=== PATIENT | male | born 1955 | race Caucasian/White ===

== ENCOUNTER 2017-07-28 18:57 | Emergency (ER) | payer MEDICARE ==
[2017-07-28 19:54] LABS: Hemoglobin 13.7 g/dL (14.0-18.0); Mean Corpuscular HGB CONC 34.8 g/dL (32.0-36.0); Mean Corpuscular Hemoglobin 33.7 pg (27.0-31.0); Mean Corpuscular Volume 96.9 fl (80.0-94.0); Mean Platelet Volume 8.3 fL (7.4-10.4); Platelet Count 45 thou/uL (130-400); RBC Distribution Width 14.4 % (11.5-14.5); Red Blood Cell (RBC) Count 4.07 mill/uL (4.70-6.10); White Blood Cell (WBC) Count 10.4 thou/uL (4.8-10.8)
[2017-07-28 20:06] LABS: ALT (SGPT) 17 U/L (8-55); AST (SGOT) 52 U/L (5-34); Albumin 2.8 g/dL (3.4-4.8); Alkaline Phosphatase 207 U/L (40-150); Anion Gap 12 mmol/L (10-20); BUN (Urea Nitrogen) 12 mg/dL (8.4-25.7); Bilirubin, Total 2.4 mg/dL (0.2-1.2); Calc. Creatinine Clearance 0 mL/min (70-130); Carbon Dioxide 24 mmol/L (23-31); Chloride 98 mmol/L (98-107); Estimated GFR-MDRD 79; Globulin 3.9 g/dL (2.4-3.5); Glucose 128 mg/dL (80-115); Lipase 64 U/L (8-78); Protein, Total 6.7 g/dL (5.8-8.1); Sodium 131 mmol/L (136-145)
[2017-07-28 20:08] LABS: Potassium 2.9 mmol/L (3.5-5.1)
--- NOTE | 2017-07-28 20:08 | RAD ---
CHEST ONE VIEW 07/28/17 HISTORY: Abdominal distention. Comparison radiograph 12/03/15. FINDINGS: Mild elevation of the left hemidiaphragm. No focal air space consolidation, pneumothorax or effusion. Mild pulmonary venous congestion. No pneumothorax. IMPRESSION: No acute intrathoracic abnormality. POS: [facility]
[2017-07-28 20:18] LABS: CKMB 1.4 ng/mL (0-6.6); Troponin I Less than 0.010 ng/mL (< 0.028)
[2017-07-28] MEDS ORDERED: Potassium Chloride 20 MEQ TAB ONE (20:27)
[2017-07-28 20:29] LABS: Band 3 % (5-11); Differential Comment Immature Cell(s); Eosinophils 3 % (0-10); Lymphocytes 19 % (21-51); MDiff Complete? YES; Monocytes 4 % (0-10); Neutrophil 38 % (42-75); Nucleated RBC 2 % (0); PLT Morphology Comment Appears Decreased; RBC Morphology Normal; Reactive Lymphocytes 6 % (0-10); Reflex for Review?? YES
[2017-07-28] MEDS ORDERED: Lidocaine 1% w/Epinephrine 1:100K 20 ML VIAL ONE (20:43)
[2017-07-28 22:00] LABS: BF Color Yellow; Body Fluid Source Ascites Body Fluid; Clarity Cloudy/Turbid (Clear); Tube # 1; WBC/NonHematic-Auto 613 /cumm
[2017-07-28 22:03] LABS: BF RBC Count - Manual 4325 /cumm
[2017-07-28 22:13] LABS: BF Segmented Neutrophils 11 %; Cell Count Non Hematic 22 %; Lymphocytes 67 %
== END 2017-07-29 00:05 | disposition home or self-care (01) ==
LOC: ERS 18:57
DX: R18.8 Other ascites (principal); I25.10 Atherosclerotic heart disease of native coronary artery without angina pectoris; I10 Essential (primary) hypertension; K74.60 Unspecified cirrhosis of liver; I25.2 Old myocardial infarction; F17.210 Nicotine dependence, cigarettes, uncomplicated; Z79.899 Other long term (current) drug therapy
CPT/HCPCS: 36415; 49082; 71045; 80053; 82553; 82945; 83690; 83880; 84157; 84484; 85025; 85060; 87070; 87205; 89051; 93005; J2001

== ENCOUNTER 2017-07-30 02:13 | Inpatient (IN) | payer MEDICARE ==
[2017-07-30 03:11] LABS: Hemoglobin 13.3 g/dL (14.0-18.0); Mean Corpuscular HGB CONC 35.5 g/dL (32.0-36.0); Mean Corpuscular Hemoglobin 34.8 pg (27.0-31.0); Mean Corpuscular Volume 97.9 fl (80.0-94.0); Mean Platelet Volume 7.9 fL (7.4-10.4); Platelet Count 42 thou/uL (130-400); RBC Distribution Width 14.6 % (11.5-14.5); Red Blood Cell (RBC) Count 3.83 mill/uL (4.70-6.10)
[2017-07-30 03:17] LABS: INR-International Normal Ratio 1.7; PTT 33.6 SEC (22.9-36.1); Prothrombin Time 20.3 SEC (12.0-14.7)
[2017-07-30 03:20] LABS: ALT (SGPT) 16 U/L (8-55); AST (SGOT) 53 U/L (5-34); Albumin 2.5 g/dL (3.4-4.8); Alkaline Phosphatase 180 U/L (40-150); Anion Gap 12 mmol/L (10-20); BUN (Urea Nitrogen) 13 mg/dL (8.4-25.7); Bilirubin, Total 2.8 mg/dL (0.2-1.2); Calc. Creatinine Clearance 0 mL/min (70-130); Calcium 8.8 mg/dL (7.8-10.44); Carbon Dioxide 24 mmol/L (23-31); Chloride 100 mmol/L (98-107); Estimated GFR-MDRD 65; Globulin 3.6 g/dL (2.4-3.5); Glucose 141 mg/dL (80-115); Potassium 3.5 mmol/L (3.5-5.1); Protein, Total 6.1 g/dL (5.8-8.1); Sodium 132 mmol/L (136-145)
[2017-07-30 03:28] LABS: Anisocytosis SLIGHT = 6-15 cells (100X) (0-5/hpf); Band 1 % (5-11); Eosinophils 5 % (0-10); Lymphocytes 31 % (21-51); MDiff Complete? YES; Monocytes 20 % (0-10); Neutrophil 42 % (42-75); PLT Morphology Comment Appears Decreased
--- NOTE | 2017-07-30 06:32 | HP ---
PRIMARY CARE PHYSICIAN: Dr. De Luna PRIMARY GASTROINTESTINAL DOCTOR: Dr. Solis TIME OF SERVICE: 0540 on 07/30/2017. CHIEF COMPLAINT: Abdominal pain, shortness of breath. HISTORY OF PRESENT ILLNESS: Mr. Argueta is a 62-year-old gentleman here in the emergency department 48 hours ago for abdominal pain and ascites and underwent a 2-3 liter paracentesis. The study of th at fluid showed 613 total white blood cells, but only 11% segs. Culture is negative today. He did well after drainage, but has had rapid reoccurrence. He was in contact with Dr. Irma seay and was told to come to the ER. The patient had trouble getting a ride and was unable to get here for 10 hours afterwards. He finally did arrive here early this morning. Labs showed a white co unt has bumped up slightly to 12.0. Creatinine bumped up slightly to 1.14. Potassium was normal. T he remainder of his labs looked pretty good. We were called for admission. The patient denies any f emily or chills. He is nauseated and has early satiety. No cough or sputum production. No GI bleed ing. PAST MEDICAL HISTORY: 1. Hepatitis C, supposedly treated. 2. Cirrhosis. 3. Coronary artery disease. 4. Hypertension. 5. History of medical noncompliance. PAST SURGICAL HISTORY: 1. Coronary artery bypass graft x2 vessels. 2. Cholecystectomy remotely. HOME MEDICATIONS: Lasix 40 mg p.o. q.a.m. and 20 mg p.o. q.p.m. ALLERGIES: CODEINE. FAMILY HISTORY: Negative for clotting or bleeding disorder, immune dysfunction. SOCIAL HISTORY: Significant for half pack per day times about 30 years. No alcohol or IV drug use r eported. REVIEW OF SYSTEMS: All systems reviewed and negative except as stated as per HPI. PHYSICAL EXAMINATION: VITAL SIGNS: Temperature current 98.4, pulse 102, blood pressure 141/68, respiratory rate 24, sattin g 94% on room air. GENERAL: He is awake. He is alert. He is oriented x3. He is a well-developed white male, appeared to be in no acute distress, but looks uncomfortable. HEENT: Normocephalic and atraumatic. Pupils equal, round, react to light bilaterally, mucus membran es are moist. No visible lesions or thrush. NECK: Supple. No lymphadenopathy, JVD or thyromegaly. LUNGS: Clear. No wheezes, no rales, no rhonchi. He had some dullness at the bases. ABDOMEN: Distended and tense. He does have a shifting dullness. He has got no tenderness to palpat ion except at the costal margins bilaterally. There are no peritoneal signs. No rebound, rigidity o r guarding. EXTREMITIES: No cyanosis or clubbing. Trace pedal edema. SKIN: Warm, moist, and well perfused without any rashes or lesions. MUSCULOSKELETAL: Normal to inspection. Large joints appear normal. There is no inflammation or pal pable effusion. He has good range of motion. NEUROLOGIC: Cranial nerves II-XII grossly intact. Normal speech pattern. 5/5 strength and no focal deficits. LABORATORY DATA: Sodium 132, potassium 3.5, chloride 100, bicarbonate 24, BUN 13, creatinine 1.14 up from 0.96 earlier 2 days ago, and glucose 141. Liver functions are fairly normal. Alkaline phosphatase slightly elevated at 180 and AST slightly el evated at 53. His total bilirubin is up from 2.4 up to 2.8 today. INR is 1.7. Lactic acid is abnor mal at 3.6 and white blood cell count is 12.0 with 42% granulocytes, 1% bands, and 31% lymphocytes. He has a 20% monocytes. Hemoglobin 13.3, hematocrit of 37.4, and platelet count was 42,000. Chest x -ray shows no acute cardiopulmonary disease. ASSESSMENT AND PLAN: 1. Abdominal pain. 2. Recurrent ascites. 3. Cirrhosis. 4. Coronary artery disease. 5. Hypertension. 6. History of medical nonadherence. We will place patient in observation. I spoke with Dr. Solis. I will give the patient albumin 25 g maureen q.8. and ask Radiology to retap him again for cell counts and cultures. In the meantime, we corbin l keep him on his Lasix 40 mg p.o. q.a.m. and 20 mg p.o. q.p.m. He is not on any Aldactone due to gy necomastia in the past per Dr. Solis, however, I will put him on a little bit of propranolol 10 mg b .i.d. and we can titrate up to a heart rate down to the 60-80 range. Otherwise, we will continue to monitor him in the hospital. We will start him on some Levaquin for prophylaxis or treatment of spon taneous bacterial peritonitis, though he has no peritoneal signs at present.
[2017-07-30 07:09] LABS: Lactic Acid 2.8 mmol/L (0.5-2.2)
[2017-07-30] MEDS ORDERED: Acetaminophen 325 MG TAB PO PRN (07:50)
[2017-07-30] MEDS ORDERED: Ondansetron HCl/PF 4 MG/2 ML Vial IVP PRN (07:50)
[2017-07-30] MEDS ORDERED: HYDROcodone/Acetaminophen 5/325 mg Tablet PO PRN (07:50)
[2017-07-30] MEDS ORDERED: Ondansetron ODT 4 MG TAB PO PRN (07:50)
[2017-07-30 08:26] VITALS: BMI 27.4
[2017-07-30] MEDS ORDERED: Furosemide 20 MG TAB PO SCH ×4 (08:30→21:00)
--- NOTE | 2017-07-30 08:31 | RAD ---
PORTABLE UPRIGHT FRONTAL CHEST RADIOGRAPH: DATE: 07/30/17. COMPARISON: 07/28/17. HISTORY: Ascites. FINDINGS: The patient is status post midline sternotomy/CABG. There is mild stable nonspecific interstitial pr ominence with no pneumothorax, pleural fluid, focal consolidation, or alveolar edema. IMPRESSION: No acute findings. POS: [facility]
[2017-07-30] MEDS: Famotidine 20 MG TAB PO SCH ×2 (09:13→20:04)
[2017-07-30] MEDS: Albumin 25% 25 GM/100 ML BOT IVPB SCH ×3 (09:14→23:51)
[2017-07-30] MEDS: Propranolol 10 MG TAB PO SCH ×2 (09:14→20:04)
--- NOTE | 2017-07-30 10:26 | PDOC.EVN ---
Event Note - Event Note Event Note: Patient evaluated today after admission for ascites. GI consulted for paracentesis. Has been started on Levofloxacin for possible SBP. No complaints from patient today. Will continue to follow.
[2017-07-30] MEDS ORDERED: ISOVUE-370 76%-LOCM 1 ML ONE (11:00)
--- NOTE | 2017-07-30 14:34 | ULT ---
LIMITED ABDOMINAL ULTRASOUND: Date: 07/30/17 HISTORY: Recurrent ascites and cirrhosis. Evaluation for free intraperitoneal fluid. FINDINGS: There is no significant amount of intraperitoneal free fluid in the abdomen. Imaging was obtained in four quadrants of the abdomen, as well as in the midline. There is a very tiny amount of intraperiton eal free fluid in the midline, but loops of bowel were present in this region. Incidentally noted is enlargement of the spleen, which measures 22 cm in craniocaudal dimensions. IMPRESSION: 1. Tiny amount of intraperitoneal free fluid. There is no percutaneously accessible fluid within the abdomen for paracentesis. 2. Splenomegaly. POS: [facility]
[2017-07-30] MEDS: Dextrose 5 % And 0.9 % NaCl 1,000 ML IV SCH (15:22)
[2017-07-30 15:30] LABS: Bilirubin Small (Negative); Blood, Urine Negative (Negative); Clarity CLEAR (Clear); Glucose, Urine (Dipstick) Negative (Negative); Leukocyte Trace (Negative); Nitrite Negative (Negative); Protein, Urine (Dipstick) Negative (Neg-Trace); Specific Gravity, Urine 1.019 (1.002-1.036); pH, Urine 5.5 (5.0-9.0)
[2017-07-30 15:35] LABS: Bacteria/HPF None Seen HPF (None Seen); Hyaline Casts/LPF 0-3 HYALINE CAST LPF (0-3 Hyaline); RBC/HPF 0-3 HPF (0-3); Squamous Epithelial 0-3 HPF (0-3); WBC/HPF 0-3 HPF (0-3)
--- NOTE | 2017-07-30 17:27 | CT ---
CT ABDOMEN AND PELVIS WITH CONTRAST: INDICATIONS: Cirrhosis. Abdominal distention with abdominal pain. COMPARISON: CT abdomen and pelvis from 12/03/2015. TECHNIQUE: Multiple axial tomograms obtained through the abdomen and pelvis with IV enhancement. FINDINGS: The lung bases are clear. The liver shows a nodular contour, consistent with cirrhosis. There is heterogeneity in the superior right lobe, under the diaphragm, with an area of low attenuation in this region, measuring approxima tely 1.3 cm on coronal images. Similar findings were seen in this region on the prior study, probabl y representing parenchymal change from cirrhosis. Close followup is recommended to rule out an infil trating process in this region, as these findings are slightly more prominent today. Splenomegaly is again seen, and the size of the spleen has increased since the prior exam of 12/03/19 16. The craniocaudal dimension of the spleen today is measured at 18 cm, whereas it previously measu red approximately 12 cm. There is portal hypertension with venous varices seen in the splenic hilum and in the paraesophageal region. The pancreas is unremarkable. A small amount of ascites is noted with a small amount of fluid around the liver and spleen margin and a small amount of fluid in the lo wer abdomen. The kidneys show symmetric enhancement. There is a cyst in the medial right kidney, measuring 2 cm, which is stable from the prior exam, and there is a medial left renal cyst measuring 1.3 cm, which is stable. Small bowel loops are of normal caliber, although there is fold thickening involving the jejunal loop s, possibly due to ascites. There is diverticulosis of the sigmoid without CT evidence of diverticul itis. There is a rounded soft tissue density, measuring 2.5 cm, adjacent to the splenic hilum, consistent w ith an accessory splenule. This was present on the prior exam, although it is slightly larger today. IMPRESSION: 1. Evidence of cirrhosis and portal hypertension. Heterogeneity in the superior liver under the dom e of the diaphragm is slightly more prominent today. Continued followup is recommended to monitor th is region. Recommend correlation with alpha fetoprotein. 2. Splenomegaly is prominent and has increased since the prior examination, as noted above. 3. Small volume ascites. 4. Fold thickening of the jejunum without evidence of dilatation, probably on the basis of ascites. 5. Diverticulosis without CT evidence of diverticulitis. POS: [facility]
[2017-07-31] MEDS: Dextrose 5 % And 0.9 % NaCl 1,000 ML IV SCH ×2 (02:07→11:47)
--- NOTE | 2017-07-31 03:51 | CON ---
DATE OF CONSULTATION: 07/30/2017 REASON FOR CONSULTATION: Abdominal distention and pain. HISTORY OF PRESENT ILLNESS: Mr. Argueta is well known to me, he has a history of cirrhosis going cel[place] k many years with alcohol and hepatitis C. He stopped drinking and has for several years and been cu red of hepatitis C for 2 years. He called me on Sunday and was having severe abdominal pain and di stention. He related this to recently being treated for presumptive strep about 2 weeks before in [facility] ER. He did not compliant with his diuretics, but he felt his abdomen become more distende d. The emergency room doctor went ahead and did a paracentesis, then removed a couple of liters of f luid and sent fluid off for evaluation. He had a cloudy fluid with 4325 red blood cells, 13 white bl ood cells, but only 11% segmented cells. He was sent home to follow up in the outpatient setting. A t that time, his white count was 10, his hemoglobin was 13.7. His platelet count was 45,000. His po tassium was 2.9 and sodium was 131. Electrolytes were normal, bilirubin 2.4, AST 252, ALT 17, alkali ne phosphatase 207, albumin 2.8, and lipase is 64. The patient called me last night. His daughter brittaney pereyra that he was throwing up and having abdominal discomfort and his abdomen was big again. He state s he has been having bowel movements. As he was unable to hold down liquids, I told him he probably have to go back to the emergency room. He was complaining also of tachypnea, difficulty breathing se condary to distended abdomen. Presently denies any overt pain. He states he had an ultrasound this morning. They could not locate any fluid for removal. He really is not hungry. He just feels bad. His abdomen is tight. It has been noted here today that his white count 12,000. He has had systoli c blood pressures in the 90s, heart rates over 100. His pain is low, he states about 3/10. He has b een having bowel movements and passing gas without problems. He had no melena, hematochezia or hemat emesis. He had recent hepatoma screening with ultrasound and AFP back in March which was normal. REVIEW OF SYSTEMS: No dysphagia, odynophagia or chills, rashes, myalgias or arthralgias. Sore throa t is resolved. He has no cough or shortness of breath, no chest pain. PAST MEDICAL HISTORY: Hepatitis C treated, cirrhosis, alcohol and hepatitis C. He is not drinking a lcohol anymore, coronary artery disease, and previous history of hypertension. PAST SURGICAL HISTORY: Coronary bypass grafting, cholecystectomy. SOCIAL HISTORY: The patient does not drink alcohol anymore. Does not use drugs, does smoke for 30 y ears. FAMILY HISTORY: Noncontributory. MEDICATIONS AT HOME: Furosemide 20 mg, he takes 3 a day. MEDICATIONS: Presently Tylenol, Pepcid, hydrocodone p.r.n., levofloxacin 500 p.o. daily, Zofran p.r. n., propranolol 10 mg b.i.d. PHYSICAL EXAMINATION: VITAL SIGNS: Temperature is 98, pulse 109-104 since admission, respirations 28, O2 sat 92% on room a ir, blood pressure 95/50. GENERAL: He is resting comfortably in bed. LUNGS: Clear, decreased breath sounds in the bases. HEART: Has sinus tachycardia, no murmurs. ABDOMEN: Protuberant, dull to percussion. There is some shifting dullness and fluid wave. It is crow[address] rd to believe there is not fluid detected on his ultrasound. There is no rebound or guarding. There is no palpable hepatosplenomegaly. EXTREMITIES: He has some peripheral edema. LABORATORY DATA: Today sodium 132, potassium 3.5, BUN and creatinine are 13 and 1.4, lactic acid is 3.6, bilirubin is 2.8, AST and ALT are 53 and 16, alkaline phosphatase 180, albumin 2.5. BNP was 82. White count was 12, hemoglobin 13.3, platelet count 42. Pathologist called in some of the peripher al smear from 07/28/2017 that there were immature cells 10% blasts and he recommended a flow cytometr y. ASSESSMENT: Cirrhosis. Patient has been really stable for some time and ascites has been well contr olled with low dose furosemide, 2 gram sodium diet. He has not had a paracentesis really since 2014, now it seems he has had some decompensation. Two liters removed because he felt distended on Saturd ay, lot of pain after that in the abdomen. He states felt like, it blew back up and he really could not take good breathing just a day or two after that with vomiting. I told to come to the emergency room, now he is admitted with mild tachycardia, relative leukocytosis for him and abdominal distentio n. He did have a chest x-ray that was normal on the 07/30/2017. RECOMMENDATIONS: 1. I think he needs a septic workup for his relative leukocytosis and hypotension. We will get urin e cultures and blood cultures. 2. He has already been started on fluoroquinolone, we will change it to IV. 3. We will get CAT scan of abdomen and pelvis as the radiologist did not feel there was any fluid to tap in his abdomen. 4. We will start him on IV fluids and albumin to help prevent hepatorenal syndrome in case he does h ave infection. We will continue to follow with you. If he may require admission, we will defer to I nternal Medicine service. He is definitely not ready to go home today.
[2017-07-31 05:05] LABS: Anion Gap 14 mmol/L (10-20); BUN (Urea Nitrogen) 15 mg/dL (8.4-25.7); Calc. Creatinine Clearance 75 mL/min (70-130); Calcium 8.7 mg/dL (7.8-10.44); Carbon Dioxide 22 mmol/L (23-31); Chloride 101 mmol/L (98-107); Estimated GFR-MDRD 69; Glucose 90 mg/dL (80-115); Potassium 3.6 mmol/L (3.5-5.1); Sodium 133 mmol/L (136-145)
[2017-07-31 06:20] LABS: Hemoglobin 11.6 g/dL (14.0-18.0); Mean Corpuscular HGB CONC 34.9 g/dL (32.0-36.0); Mean Corpuscular Hemoglobin 34.2 pg (27.0-31.0); Mean Corpuscular Volume 98.1 fl (80.0-94.0); Mean Platelet Volume 8.4 fL (7.4-10.4); Platelet Count 37 thou/uL (130-400); RBC Distribution Width 14.6 % (11.5-14.5); White Blood Cell (WBC) Count 10.7 thou/uL (4.8-10.8)
[2017-07-31] MEDS: Famotidine 20 MG TAB PO SCH ×2 (08:58→20:27)
[2017-07-31] MEDS: Propranolol 10 MG TAB PO SCH ×2 (08:58→20:28)
[2017-07-31] MEDS: Albumin 25% 25 GM/100 ML BOT IVPB SCH ×2 (08:58→16:31)
--- NOTE | 2017-07-31 10:21 | PDOC.PN ---
- Subjective Encounter Start Date: 07/31/17 Encounter Start Time: 10:27 Patient seen and examined following admission for abdominal pain and distension 2/2 liver cirrhosis. No complaints today and feels much better. No tappable fluid per CT abdomen. No acute events overnight. - Objective Resuscitation Status: Resuscitation Status FULL:Full Resuscitation MAR Reviewed: Yes Vital Signs & Weight: Vital Signs (12 hours) Temp Pulse Resp BP Pulse Ox 07/31/17 07:10 98.1 F 97 24 H 148/66 H 95 07/31/17 04:42 98.4 F 107 H 20 108/55 L 93 L 07/31/17 01:03 98.2 F 107 H 22 H 130/64 92 L Weight Weight 170 lb I&O: 07/30/17 07/31/17 08/01/17 06:59 06:59 06:59 Intake Total 2020 Output Total 600 Balance 1420 Result Diagrams: 07/31/17 03:38 07/31/17 03:38 Phys Exam - Physical Examination Constitutional: NAD HEENT: moist MMs, sclera anicteric, oral pharynx no lesions Neck: supple, full ROM Respiratory: no wheezing, no rales, no rhonchi, clear to auscultation bilateral Cardiovascular: RRR, no significant murmur, no rub Gastrointestinal: soft, non-tender, positive bowel sounds + distension but no guarding. Musculoskeletal: no edema, pulses present Neurological: non-focal, moves all 4 limbs Psychiatric: normal affect, A&O x 3 Skin: no rash, normal turgor Dx/Plan (1) Abdominal pain Code(s): R10.9 - UNSPECIFIED ABDOMINAL PAIN Status: Acute Qualifiers: Abdominal location: generalized Qualified Code(s): R10.84 - Generalized abdominal pain (2) Cirrhosis of liver with ascites Code(s): K74.60 - UNSPECIFIED CIRRHOSIS OF LIVER; R18.8 - OTHER ASCITES Status : Chronic (3) HTN (hypertension) Code(s): I10 - ESSENTIAL (PRIMARY) HYPERTENSION Status: Acute Qualifiers: Hypertension type: essential hypertension Qualified Code(s): I10 - Essential (primary) hypertension (4) CAD (coronary artery disease) Code(s): I25.10 - ATHSCL HEART DISEASE OF [place] CORONARY ARTERY W/O ANG PCTRS Status: Chronic Qualifiers: Coronary Disease-Associated Artery/Lesion type: unspecified vessel or lesion type [place] vs. transplanted heart: [place] heart Associated angina: without angina Qualified Code(s): I25.10 - Atherosclerotic heart disease of [place] coronary artery without angina pectoris (5) History of hepatitis C Code(s): Z86.19 - PERSONAL HISTORY OF OTHER INFECTIOUS AND PARASITIC DISEASES Status: Acute - Plan cont current plan of care, plan discussed w/ family, continue antibiotics, out of bed/ambulate, DVT proph w/SCDs Admitted for abdominal pain with concerns for possible SBP. GI reviewed and recommended albumin, IV fluids and blood cultures. CT abdomen revealed diverticulosis but no other acute finding warranting intervention. Started on IV levofloxacin and improved today. - f/u blood cultures. - Continue levofloxacin - f/u GI recs Review of Systems - Medications/Allergies Allergies/Adverse Reactions: Allergies Allergy/AdvReac Type Severity Reaction Status Date / Time codeine Allergy Verified 11/06/14 12:43 Medications: Current Medications Acetaminophen (Tylenol) 650 mg PO Q4H PRN PRN Reason: Headache/Fever or Pain Hydrocodone Bitart/Acetaminophen ([place] 5/325) 1 tab PO Q4H PRN PRN Reason: Moderate Pain (4-6) Albumin Human (Albumin 25%) 25 gm IVPB Q8H [facility] Stop: 08/01/17 08:01 Last Admin: 07/31/17 08:58 Dose: 25 gm Famotidine (Pepcid) 20 mg PO BID [facility] Last Admin: 07/31/17 08:58 Dose: 20 mg Dextrose/Sodium Chloride (D5 0.9% Ns) 1,000 mls @ 100 mls/hr IV .Q10H [facility] Last Admin: 07/31/17 02:07 Dose: Not Given Levofloxacin 500 mg/ Device 100 mls @ 100 mls/hr IVPB Q24HR [facility] Last Admin: 07/31/17 10:08 Dose: 100 mls Ondansetron HCl (Zofran Odt) 4 mg PO Q6H PRN PRN Reason: Nausea/Vomiting Last Admin: 07/30/17 16:14 Dose: 4 mg Ondansetron HCl (Zofran) 4 mg IVP Q6H PRN PRN Reason: Nausea/Vomiting Propranolol HCl (Inderal) 10 mg PO BID [facility] Last Admin: 07/31/17 08:58 Dose: 10 mg
--- NOTE | 2017-07-31 20:33 | PRG ---
DATE OF SERVICE: 07/31/2017 SUBJECTIVE: Mr. Argueta still feels pretty tired. He is up walking around. He actually went out to smoke a little while ago. Remains on albumin IV q.8 hours, famotidine, p.r.n. hydrocodone, levoflox acin. OBJECTIVE: VITAL SIGNS: Temperature is 98; pulse 107, it has dropped down now to 81; blood pressure 124/70. ABDOMEN: Remains protuberant, but there is really not any fluid wave, shifting dullness. EXTREMITIES: Revealed trace edema. LABORATORY STUDIES: White count 10.7, hemoglobin 11.5, platelet count is 37,000. CT scan of abdomen and pelvis yesterday showed really marked increase in the size of his spleen as compared to previous CAT scans and somewhat increased size of liver with some fullness in the right lobe. It reveals sma ll loops of bowel are somewhat edematous likely from passive congestion. There is [id number] asci david in his abdominal cavity except for down in the cul-de-sac. Pathologist called me about his blood count from 07/28/2017. Apparently, there were immature cells t here with about 10% blasts. A flow cytometry was recommended and I ordered that yesterday. Today, t he pathologist called me and although the reports are not out, told me it shows a B-cell lymphoma. ASSESSMENT: 1. Partial hepatitis C with negative RNAs. We will recheck that in light of the B-cell lymphoma. 2. B-cell lymphoma. I think that is why his spleen is so big. The spleen is massive now and that i s I think was making his abdomen seemed distended. We will get Hematology to see him. This is going to be difficult to treat if it is aggressive, because he has underlying cirrhosis. 3. Cirrhosis from previous alcohol and hepatitis C. For now, we will hold off on diuretics. BUN an d creatinine have improved. Blood cultures have been negative so far, so we will go ahead and stop t he albumin.
[2017-08-01 05:41] LABS: ALT (SGPT) 13 U/L (8-55); AST (SGOT) 45 U/L (5-34); Albumin 3.3 g/dL (3.4-4.8); Alkaline Phosphatase 138 U/L (40-150); Anion Gap 12 mmol/L (10-20); BUN (Urea Nitrogen) 14 mg/dL (8.4-25.7); Bilirubin, Total 3.4 mg/dL (0.2-1.2); Calc. Creatinine Clearance 90 mL/min (70-130); Calcium 8.8 mg/dL (7.8-10.44); Carbon Dioxide 23 mmol/L (23-31); Chloride 105 mmol/L (98-107); Estimated GFR-MDRD 85; Globulin 2.9 g/dL (2.4-3.5); Glucose 113 mg/dL (80-115); Potassium 3.6 mmol/L (3.5-5.1); Protein, Total 6.2 g/dL (5.8-8.1); Sodium 136 mmol/L (136-145)
[2017-08-01 05:43] LABS: ALT (SGPT) 13 U/L (8-55); AST (SGOT) 43 U/L (5-34); Albumin 3.3 g/dL (3.4-4.8); Alkaline Phosphatase 137 U/L (40-150); Bilirubin, Direct 1.1 mg/dL (0.1-0.3); Bilirubin, Total 3.4 mg/dL (0.2-1.2); Protein, Total 6.1 g/dL (5.8-8.1)
[2017-08-01] MEDS: Dextrose 5 % And 0.9 % NaCl 1,000 ML IV SCH ×2 (05:58→06:12)
[2017-08-01 06:39] LABS: Band 2 % (5-11); Eosinophils 10 % (0-10); Hemoglobin 11.7 g/dL (14.0-18.0); Lymphocytes 43 % (21-51); MDiff Complete? YES; Mean Corpuscular HGB CONC 35.4 g/dL (32.0-36.0); Mean Corpuscular Hemoglobin 35.4 pg (27.0-31.0); Mean Platelet Volume 8.2 fL (7.4-10.4); Monocytes 13 % (0-10); Neutrophil 32 % (42-75); PLT Morphology Comment Appears Decreased; Platelet Count 32 thou/uL (130-400); Red Blood Cell (RBC) Count 3.31 mill/uL (4.70-6.10); White Blood Cell (WBC) Count 8.9 thou/uL (4.8-10.8)
[2017-08-01] MEDS: Propranolol 10 MG TAB PO SCH ×2 (08:57→20:57)
[2017-08-01] MEDS: Famotidine 20 MG TAB PO SCH ×2 (08:57→20:57)
--- NOTE | 2017-08-01 09:24 | CON ---
DATE OF CONSULTATION: 08/01/2017 HISTORY OF PRESENT ILLNESS: Mr. Argueta is a 62-year-old male with a known history of cirrhosis and splenomegaly who recently has developed increasing shortness of breath as well as abdominal distentio n and bloating. He had a paracentesis last weekend in the emergency room and 2 liters were removed, but now he has no significant fluid left in the abdomen. He continues to say that he is bloated and distended. He is coughing and is somewhat short of breath. He is not eating as well, but has not lo st any weight, he thinks in fact he is gaining weight. He denies fevers, chills, or night sweats. D enies any lymphadenopathy. On admission, blood counts, white blood cell count was slightly elevated in the 12-13,000 range and abnormal cells were noted by the pathologist. Flow cytometry has confirme d a B cell non-Hodgkin's lymphoma, not otherwise specified, at this time. The patient has no other n ew complaints. PAST MEDICAL HISTORY: 1. Cirrhosis with known splenomegaly, recent abdominal CT scan shows splenomegaly has worsened. 2. Hepatitis C. 3. Coronary artery disease. 4. Hypertension. 5. History of medical noncompliance. CURRENT HOME MEDICATIONS: Lasix p.r.n. CURRENT INPATIENT MEDICATIONS: 1. Tylenol p.r.n. 2. [place] p.r.n. 3. Pepcid 20 mg p.o. b.i.d. 4. Levaquin 500 mg p.o. daily. 5. Zofran ODT 4 mg p.o. q.6 hours p.r.n. 6. Zofran 4 mg IV q.6 hours p.r.n. 7. Propranolol 10 mg p.o. b.i.d. ALLERGIES: CODEINE. SOCIAL HISTORY: He lives in [place] and is here with family who is quite supportive. He does crowley ve transportation issues. He denies any current alcohol use. He does admit to distant history of to bacco use. FAMILY HISTORY: Positive for lung cancer in his mother. REVIEW OF SYSTEMS: Otherwise, 10-point review of systems is negative. Please see the history of pre sent illness. PHYSICAL EXAMINATION: VITAL SIGNS: Temperature 97.8, pulse 76, respirations 16-20, O2 sat 95% on room air, blood pressure 118/66. GENERAL: He appears older than his stated age, is in no acute distress, pleasant. HEENT: Extraocular muscles are intact, pupils reactive to light. He has no oral cavity lesions. Sc lerae are slightly icteric. NECK: Supple, without lymphadenopathy. CARDIOVASCULAR: Regular rhythm. LUNGS: Clear to auscultation bilaterally with decreased breath sounds in base bilaterally. ABDOMEN: Distended, tender in the left flank. His spleen is obviously palpable in the left flank an d is tender to palpation. EXTREMITIES: Trace edema bilaterally. LABORATORY: White blood cell count currently 8.9, hemoglobin 11.7, platelets 32,000. Sodium 136, po tassium 3.6, chloride 105, CO2 of 23, BUN 14, creatinine 0.9, glucose 85, calcium 8.8, total bilirubi n 3.4, AST 45, ALT 13, albumin 3.3. Flow cytometry is consistent with B cell non-Hodgkin's lymphoma with 17% lambda positive monotypic B cells, possibly consistent with marginal zone lymphoma or lympho plasmacytic lymphoma, but there are other lymphomas in the differential. FISH and cytogenetic testin g is pending. CT of the abdomen and pelvis done this week shows splenomegaly and cirrhosis, the spleen measures 18 cm. Prior to this, the last imaging was in 2016 where the spleen was 12 cm. There is no evidence of lymphadenopathy. ASSESSMENT: Mr. Argueta is a 62-year-old male with: 1. History of cirrhosis and hepatitis C with splenomegaly. 2. Worsening splenomegaly in the last 2 years. 3. B cell lymphoma, not otherwise specified at this time. 4. Chronic thrombocytopenia secondary to splenomegaly, but possibly worsened because of recent splen omegaly and lymphoma diagnosis. PLAN: 1. We discussed that right now this is a B cell lymphoma, not otherwise specified and that we need f urther genetic cytogenetic testing to know which type of lymphoma it is. He may in fact need a bone marrow biopsy and because of his transportation issues, the family would like me to schedule this tolaine waller, so we will take care of that. 2. He will follow up with me as an outpatient for further discussions on treatment options. 3. No platelet transfusion needed at this time as he has no signs of bleeding and I have discussed t his with Radiology. 4. We will follow him peripherally and get him a follow up as an outpatient.
[2017-08-01] MEDS ORDERED: Fentanyl 100 MCG/2 ML VIAL ONE (10:40)
[2017-08-01] MEDS ORDERED: Midazolam HCl 2 mg/2 ml Vial ONE (10:42)
[2017-08-01] MEDS ORDERED: Sodium Bicarbonate 2.5 MEQ/5 ML VIAL ONE (10:42)
--- NOTE | 2017-08-01 10:43 | PDOC.PN ---
- Subjective Encounter Start Date: 08/01/17 Encounter Start Time: 10:44 Seen and examined following admission for abdominal pain and possible sepsis. Started on IV antibiotics, IV fluids and albumin. Patient feels much better. CBC from before admission revealed blasts and further studies showing possible B cell lymphoma, which would account for his splenomegaly. Heme/Onc has been consulted and will evaluate patient and schedule bone marrow biopsy. - Objective Resuscitation Status: Resuscitation Status FULL:Full Resuscitation MAR Reviewed: Yes Vital Signs & Weight: Vital Signs (12 hours) Temp Pulse Resp BP Pulse Ox 08/01/17 07:50 97.8 F 76 20 95 08/01/17 07:23 97.8 F 76 20 118/66 95 08/01/17 05:15 97.8 F 87 22 H 139/71 94 L Weight Weight 170 lb I&O: 07/31/17 08/01/17 08/02/17 06:59 06:59 06:59 Intake Total 2020 960 Output Total 600 100 Balance 1420 860 Result Diagrams: 08/01/17 05:05 08/01/17 05:05 Phys Exam - Physical Examination Constitutional: NAD HEENT: moist MMs, sclera anicteric, oral pharynx no lesions Neck: supple, full ROM Respiratory: no wheezing, no rales, no rhonchi, clear to auscultation bilateral Cardiovascular: RRR, no significant murmur, no rub Gastrointestinal: soft, non-tender, no distention, positive bowel sounds Neurological: non-focal, moves all 4 limbs Psychiatric: normal affect, A&O x 3 Skin: no rash, normal turgor Dx/Plan (1) Cirrhosis of liver with ascites Code(s): K74.60 - UNSPECIFIED CIRRHOSIS OF LIVER; R18.8 - OTHER ASCITES Status : Chronic Comment: Stable. GI on board. Not decompensated. (2) HTN (hypertension) Code(s): I10 - ESSENTIAL (PRIMARY) HYPERTENSION Status: Chronic Qualifiers: Hypertension type: essential hypertension Qualified Code(s): I10 - Essential (primary) hypertension Comment: Fairly well controlled. Monitor blood pressure closely. (3) CAD (coronary artery disease) Code(s): I25.10 - ATHSCL HEART DISEASE OF [place] CORONARY ARTERY W/O ANG PCTRS Status: Chronic Qualifiers: Coronary Disease-Associated Artery/Lesion type: unspecified vessel or lesion type [place] vs. transplanted heart: [place] heart Associated angina: without angina Qualified Code(s): I25.10 - Atherosclerotic heart disease of [place] coronary artery without angina pectoris Comment: Stable, chest pain free. (4) History of hepatitis C Code(s): Z86.19 - PERSONAL HISTORY OF OTHER INFECTIOUS AND PARASITIC DISEASES Status: Chronic (5) Tobacco abuse Code(s): Z72.0 - TOBACCO USE Status: Chronic Comment: Continues to smoke. Counseled on cessation. (6) B-cell lymphoma Code(s): C85.10 - UNSPECIFIED B-CELL LYMPHOMA, UNSPECIFIED SITE Status: Acute Comment: w splenomegaly. Oncology on board and will schedule bone biopsy. (7) Abdominal pain Code(s): R10.9 - UNSPECIFIED ABDOMINAL PAIN Status: Resolved Qualifiers: Abdominal location: generalized Qualified Code(s): R10.84 - Generalized abdominal pain - Plan cont current plan of care, plan discussed w/ family, continue antibiotics, DVT proph w/SCDs * . Review of Systems - Medications/Allergies Allergies/Adverse Reactions: Allergies Allergy/AdvReac Type Severity Reaction Status Date / Time codeine Allergy Verified 11/06/14 12:43 Medications: Current Medications Acetaminophen (Tylenol) 650 mg PO Q4H PRN PRN Reason: Headache/Fever or Pain Hydrocodone Bitart/Acetaminophen ([place] 5/325) 1 tab PO Q4H PRN PRN Reason: Moderate Pain (4-6) Famotidine (Pepcid) 20 mg PO BID [facility] Last Admin: 08/01/17 08:57 Dose: 20 mg Dextrose/Sodium Chloride (D5 0.9% Ns) 1,000 mls @ 100 mls/hr IV .Q10H [facility] Last Admin: 08/01/17 06:12 Dose: 1,000 mls Levofloxacin 500 mg/ Device 100 mls @ 100 mls/hr IVPB Q24HR [facility] Last Admin: 08/01/17 08:57 Dose: 100 mls Ondansetron HCl (Zofran Odt) 4 mg PO Q6H PRN PRN Reason: Nausea/Vomiting Last Admin: 07/30/17 16:14 Dose: 4 mg Ondansetron HCl (Zofran) 4 mg IVP Q6H PRN PRN Reason: Nausea/Vomiting Propranolol HCl (Inderal) 10 mg PO BID [facility] Last Admin: 08/01/17 08:57 Dose: 10 mg
--- NOTE | 2017-08-01 12:55 | CT ---
CT GUIDED BONE MARROW ASPIRATION AND BIOPSY: DATE: 08/01/17. HISTORY: Thrombocytopenia. FINDINGS: Informed consent was obtained prior to the procedure. Limited lime hide inspector CT examination of the pelvis wit hout contrast was performed for localization. CT of abdomen and pelvis performed 07/30/17 better asse sses the pelvic structures. This examination does demonstrate nonspecific ascites of relatively smal l volume within the pelvis, most prominent in the right lower quadrant and posterior to the urinary b ladder. There is also extensive diverticulosis of the sigmoid colon noted and there is scattered ath erosclerotic calcification of the abdominal aorta and its branches. The patient was placed on the CT stable in the prone position and the skin overlying the left iliac b one was prepped and draped in normal sterile fashion. The skin overlying this region was anesthetize d with 1% buffered Lidocaine. A spinal needle was utilized to numb the periosteum as well. Subsequently, with CT guidance, an 11 gauge biopsy system, including a handheld drill, was utilized t o obtain a bone marrow aspirate. A total of 7 cc were aspirated and given to the pathology personnel at the bedside per the pathology instructions. Then, a good core biopsy was obtained and also give n to the pathology personnel. The needle was removed. The patient tolerated the procedure well. IMPRESSION: Successful bone marrow aspiration and biopsy with CT guidance as described above. POS: [facility]
[2017-08-02 05:28] LABS: ALT (SGPT) 14 U/L (8-55); AST (SGOT) 48 U/L (5-34); Albumin 3.2 g/dL (3.4-4.8); Alkaline Phosphatase 150 U/L (40-150); Anion Gap 13 mmol/L (10-20); BUN (Urea Nitrogen) 14 mg/dL (8.4-25.7); Bilirubin, Total 3.9 mg/dL (0.2-1.2); Calc. Creatinine Clearance 91 mL/min (70-130); Calcium 8.8 mg/dL (7.8-10.44); Carbon Dioxide 21 mmol/L (23-31); Chloride 105 mmol/L (98-107); Estimated GFR-MDRD 86; Globulin 3.2 g/dL (2.4-3.5); Glucose 81 mg/dL (80-115); Potassium 4.1 mmol/L (3.5-5.1); Protein, Total 6.4 g/dL (5.8-8.1); Sodium 135 mmol/L (136-145)
[2017-08-02 05:38] LABS: ALT (SGPT) 15 U/L (8-55); AST (SGOT) 49 U/L (5-34); Albumin 3.2 g/dL (3.4-4.8); Alkaline Phosphatase 151 U/L (40-150); Bilirubin, Total 3.9 mg/dL (0.2-1.2); Protein, Total 6.3 g/dL (5.8-8.1)
[2017-08-02 07:25] LABS: Band 2 % (5-11); Eosinophils 5 % (0-10); Lymphocytes 53 % (21-51); MDiff Complete? YES; Mean Corpuscular HGB CONC 34.8 g/dL (32.0-36.0); Mean Corpuscular Hemoglobin 34.7 pg (27.0-31.0); Mean Corpuscular Volume 99.6 fl (80.0-94.0); Mean Platelet Volume 8.6 fL (7.4-10.4); Monocytes 1 % (0-10); Neutrophil 38 % (42-75); Nucleated RBC 1 % (0); PLT Morphology Comment Appears Decreased; Platelet Count 30 thou/uL (130-400); RBC Distribution Width 15.2 % (11.5-14.5); RBC Morphology Normal; Red Blood Cell (RBC) Count 3.46 mill/uL (4.70-6.10); White Blood Cell (WBC) Count 7.3 thou/uL (4.8-10.8)
[2017-08-02] MEDS ORDERED: Albuterol Sulfate 2.5 mg/3 ml Neb NEB PRN (07:58)
[2017-08-02] MEDS ORDERED: guaiFENesin ER 600 MG TAB PO SCH (09:00)
[2017-08-02] MEDS ORDERED: Furosemide 20 MG TAB PO SCH (09:00)
--- NOTE | 2017-08-02 09:02 | RAD ---
FRONTAL RADIOGRAPH CHEST: DATE: 08/02/17. COMPARISON: 07/30/17. HISTORY: Cough with shortness of breath. FINDINGS: Midline sternotomy wires are present. There is mild pulmonary vascular congestion and perihilar inte rstitial prominence. There is no pneumothorax, pleural fluid, lobar consolidation, or alveolar edema . Mediastinal clips are present. IMPRESSION: No significant interval change. POS: [facility]
[2017-08-02] MEDS: Famotidine 20 MG TAB PO SCH (09:33)
--- NOTE | 2017-08-02 10:46 | DIS ---
DATE OF ADMISSION: 07/30/2017 DATE OF DISCHARGE: 08/02/2017 DISCHARGE DIAGNOSES: B-cell lymphoma, cirrhosis of liver with ascites, hypertension, coronary artery disease, history of hepatitis C, tobacco abuse, abdominal pain, resolved. HISTORY OF PRESENT ILLNESS/HOSPITAL COURSE: Mr. Leander Argueta is a 62-year-old male with a history of hepatitis C, status post treatment, cirrhosis, CAD, hypertension, and history of nonadherence to m edication, who presented to the emergency room for abdominal pain and swelling. [facility] hours before representing. On his earlier visit, he had a paracentesis where they removed 2-3 liters of fluid. Studies showed only 11% neutrophils and culture was negative. At the emergency room, he complained of rapid recurrence. He had called Dr. Solis the previous evening and he was told to come to the emergency room. His labs showed a slight increase in white blood cou nt to 12. Creatinine was 1.14. Potassium was normal. He denied any fevers or chills, but reported some nausea and early satiety. There was no cough, sputum, or GI bleed. His physical examination sh owed ascites, but no shifting dullness or fluid thrill. Lab shows a fairly normal liver function with slightly elevation of his alkaline phosphatase and AST of 53. Bilirubin went up from 2.4 to 2.8. INR was 1.7. Lactic acid was abnormal at 3.6 and WBC was 12 with 42% granulocytes and 31% lymphocytes with 20% monocytes. CBC was remarkable for platelet co unt of 2000. So, he was admitted for possible paracentesis with consult placed to Dr. Solis. Dr. Selvin campbell came and evaluated the patient and found he was slightly hypotensive and there was some concern for sepsis. So, the patient was started on IV albumin and parenteral IV fluids. His p.o. levofloxa swati was changed to IV. He continued to respond to therapy and antibiotics were discontinued. Also, it was noted that patient is not on Aldactone due to gynecomastia in the past. He was continued on p ropranolol 10 mg b.i.d. While in hospital, Dr. Solis was informed that he had immature cells in his previous CBC and so further studies were done and the patient was found to have a B-cell lymphoma, w hich could account for splenomegaly that was seen on CT abdomen that was done in this admission. Hem atology/Oncology were consulted and they evaluated the patient. He had a bone biopsy done. They corbin l follow up with the patient in clinic for results of his bone marrow biopsy. The patient was stable , alert, and well oriented on the day of discharge. CT scan of abdomen showed no drainable fluid, so his abdominal swelling was likely due to his splenomegaly. DISCHARGE MEDICATIONS: Furosemide 40 mg q.a.m. and 20 mg at bedtime and propranolol 10 mg b.i.d. PHYSICAL EXAMINATION: He was examined on the day of discharge. VITAL SIGNS: Temperature 98.1, pulse rate 84, respiratory rate is 18, oxygen saturation 94% on room air, blood pressure 117/57. GENERAL: Not in acute distress. He is sitting up in bed and looks comfortable. HEENT: Normocephalic, atraumatic. Not pale, anicteric. Moist mucous membranes. NECK: Supple. No JVD. CARDIOVASCULAR: S1 and S2 only. Regular rate and rhythm. No murmurs, rubs or gallops. RESPIRATORY: Vesicular breath sounds bilaterally. No wheezes or rales. ABDOMEN: Distended. Bowel sounds normoactive. Fluid thrill negative. No shifting dullness, not te nder. MUSCULOSKELETAL: No edema. NEUROLOGIC: Alert and well oriented. No focal deficits. SKIN: Warm, dry, well-perfused. No rashes or lesions. PSYCHIATRIC: Normal mood and affect. LABORATORY DATA: WBC 7.3, hemoglobin 12, platelet count 30,000. Sodium 135, potassium 4.1, chloride 105, carbon dioxide 21, anion gap 13, BUN 14, creatinine 0.89, glucose 81, calcium 8.8. IMAGING: Chest x-ray and CT abdomen and pelvis. PROCEDURES: Bone marrow biopsy. CONSULTATION: Hematology/Oncology and GI. DIET: Low salt. ACTIVITY: As tolerated. CARE GOALS: To follow up with primary care physician within 1 week of discharge. Discharge time 65 minutes including chart review and documentation. CONDITION AT DISCHARGE: Stable and improved.
[2017-08-02] MEDS: Propranolol 10 MG TAB PO SCH (10:50)
[2017-08-02 11:10] VITALS: BP 124/68; TEMP 98
--- NOTE | 2017-08-03 11:13 | PQF ---
KAREY DOLAN ALYSON JENSEN [id number] CLINICAL DOCUMENTATION IMPROVEMENT CLARIFICATION FORM: ICD-10 Updated PLEASE DO AN ADDENDUM TO THE PROGRESS NOTE WITH ANY DOCUMENTATION UPDATES OR ADDITIONS AND CARRY THROUGH TO DC SUMMARY. THANK YOU. DATE: 08-03-17 ATTN: DR. NEWTON Please exercise your independent, professional judgment in responding to the clarification form. Clinical indicators are provided on the bottom of this form for your review Please check appropriate box(s) to clarify if the following diagnosis has been ruled in or ruled out: SEPSIS [ ] Ruled in diagnosis [ ] Continue to treat [ x ] Resolved [ ] Ruled out diagnosis [ ] Cannot rule out diagnosis [ ] Other diagnosis [ ] Unable to determine In addition, please specify: Present on Admission (POA): [ x] Yes [ ] No [ ] Unable to determine For continuity of documentation, please document condition throughout progress notes and discharge summary. Thank You. CLINICAL INDICATORS - SIGNS / SYMPTOMS / LABS ED: PULSE [id number] RESP 22-26 LABS: WBC LACTIC ACID 6- 12.0 3.6 6-11 GI (DERBES): I THINK HE NEEDS SEPTIC WORKUP - LEUKOCYTOSIS/ HYPOTENSION 6-12 IM (FADAYOMI): POSSIBLE SBP 6-13 IM (TRICIAAYOMI): ADMISSION FOR ABD PAIN AND POSSIBLE SEPSIS RISK FACTORS H&P: IN ED 48 HOURS AGO FOR ABD PAIN AND ASCITES UNDERWENT 2-3 LITER PARACENTESIS RAPID REOCCURRENCE OF ASCITES CIRRHOSIS AND HEP C STARTED ON LEVAQUIN FOR TREATMENT OF SPONTANEOUS BACTERIAL PERITONITIS - NO PERITONEAL SIGNS AT PRESENT TREATMENTS MAR: LEVAQUIN IV 6-/ 6- IVF 6-/ 6- UA CULTURE - NO GROWTH BLD CULTURES - NO GROWTH AT 48 HOURS THANK YOU, NERIS (This form is maintained as a part of the permanent medical record) 2015 [employer]. All Rights Reserved Neris Edmonds, RN, BS [email or web address] [facility] MEM[facility] HOSPITALSelvin
--- NOTE | 2017-08-03 12:57 | CT ---
CT GUIDED BONE MARROW ASPIRATION AND BIOPSY: DATE: 08/01/17. HISTORY: Thrombocytopenia. FINDINGS: Informed consent was obtained prior to the procedure. Limited trust evaluation supervisor CT examination of the pelvis wit hout contrast was performed for localization. CT of abdomen and pelvis performed 07/30/17 better asse sses the pelvic structures. This examination does demonstrate nonspecific ascites of relatively smal l volume within the pelvis, most prominent in the right lower quadrant and posterior to the urinary b ladder. There is also extensive diverticulosis of the sigmoid colon noted and there is scattered ath erosclerotic calcification of the abdominal aorta and its branches. The patient was placed on the CT stable in the prone position and the skin overlying the left iliac b one was prepped and draped in normal sterile fashion. The skin overlying this region was anesthetize d with 1% buffered Lidocaine. A spinal needle was utilized to numb the periosteum as well. Subsequently, with CT guidance, an 11 gauge biopsy system, including a handheld drill, was utilized t o obtain a bone marrow aspirate. A total of 7 cc were aspirated and given to the pathology personnel at the bedside per the pathology instructions. Then, a good core biopsy was obtained and also give n to the pathology personnel. The needle was removed. The patient tolerated the procedure well. IMPRESSION: Successful bone marrow aspiration and biopsy with CT guidance as described above.
== END 2017-08-02 12:54 | disposition home or self-care (01) | DRG 842 ==
LOC: ERS 02:13 → OBSVTOIN 05:48 → 2SW 05:48 → T4-A 17:13
PROVIDERS: ADMIT Internal Medicine Infectious Disease; ATTEND Internal Medicine Infectious Disease
PROC: 07DR3ZX Extraction of Iliac Bone Marrow, Percutaneous Approach, Diagnostic (ICD-10-PCS; principal; 2017-08-01)
PROC: 8E0YXBF Computer Assisted Procedure of Lower Extremity, With Fluoroscopy (ICD-10-PCS; 2017-08-01)
DX: C85.10 Unspecified B-cell lymphoma, unspecified site (principal); K70.31 Alcoholic cirrhosis of liver with ascites; I25.10 Atherosclerotic heart disease of native coronary artery without angina pectoris; I10 Essential (primary) hypertension; R10.9 Unspecified abdominal pain; F17.210 Nicotine dependence, cigarettes, uncomplicated; Z86.19 Personal history of other infectious and parasitic diseases; Z91.19 Patient's noncompliance with other medical treatment and regimen; Z95.1 Presence of aortocoronary bypass graft; D73.2 Chronic congestive splenomegaly; D69.59 Other secondary thrombocytopenia
CPT/HCPCS: 20225; 36415; 49082; 71045; 74177; 76705; 77002; 80048; 80053; 81001; 82105; 82553; 82945; 83605; 83690; 83880; 84157; 84443; 84484; 85025; 85027; 85060; 85097; 85610; 85730; 87040; 87070; 87086; 87205; 88184; 88237; 88264; 88280; 88305; 88311; 88313; 88341; 88342; 88360; 89051; 93005; 96360; 96361; J1956; J2001; J2250; J3010; P9047; Q0162

== ENCOUNTER 2017-08-03 22:58 | Emergency (ER) | payer MEDICARE ==
[2017-08-04 00:31] LABS: ALT (SGPT) 12 U/L (8-55); AST (SGOT) 42 U/L (5-34); Albumin 3.2 g/dL (3.4-4.8); Alkaline Phosphatase 163 U/L (40-150); Anion Gap 13 mmol/L (10-20); BUN (Urea Nitrogen) 12 mg/dL (8.4-25.7); Bilirubin, Total 4.7 mg/dL (0.2-1.2); CK (CPK) 98 U/L (30-200); Calc. Creatinine Clearance 0 mL/min (70-130); Carbon Dioxide 22 mmol/L (23-31); Chloride 104 mmol/L (98-107); Estimated GFR-MDRD 75; Globulin 3.3 g/dL (2.4-3.5); Glucose 88 mg/dL (80-115); Lipase 71 U/L (8-78); Potassium 3.8 mmol/L (3.5-5.1); Protein, Total 6.5 g/dL (5.8-8.1); Sodium 135 mmol/L (136-145)
[2017-08-04 00:48] LABS: Hemoglobin 12.3 g/dL (14.0-18.0); Mean Corpuscular HGB CONC 34.9 g/dL (32.0-36.0); Mean Corpuscular Hemoglobin 34.7 pg (27.0-31.0); Mean Corpuscular Volume 99.6 fl (80.0-94.0); Mean Platelet Volume 8.7 fL (7.4-10.4); Platelet Count 29 thou/uL (130-400); RBC Distribution Width 15.4 % (11.5-14.5); Red Blood Cell (RBC) Count 3.53 mill/uL (4.70-6.10); White Blood Cell (WBC) Count 7.9 thou/uL (4.8-10.8)
[2017-08-04 00:50] LABS: Eosinophils 1 % (0-10); Lymphocytes 27 % (21-51); MDiff Complete? YES; Macrocytosis SLIGHT = 6-15 cells (100X) (0-5/hpf); Monocytes 10 % (0-10); Neutrophil 55 % (42-75); PLT Morphology Comment Appears Decreased; Reactive Lymphocytes 7 % (0-10)
[2017-08-04 00:52] LABS: INR-International Normal Ratio 1.6; PTT 32.2 SEC (22.9-36.1); Prothrombin Time 19.9 SEC (12.0-14.7)
--- NOTE | 2017-08-04 09:13 | RAD ---
KUB AND UPRIGHT: Date: 08/04/17 HISTORY: Abdominal pain and swelling. Recent diagnosis of lymphoma. FINDINGS: The bowel gas pattern appears nonobstructive. No free air is seen on upright chest film. Postop isidro cystectomy changes are present. Spleen is enlarged. Heart size is within normal limits. There are postop sternotomy changes. Lungs are clear of any infil trative process. IMPRESSION: 1. No acute findings. 2. Air within nondistended small bowel loops, slightly prominent fold pattern of the small bowel but this is nonspecific. 3. Enlarged spleen. POS: [facility]
== END 2017-08-04 03:25 | disposition home or self-care (01) ==
LOC: ERS 22:58
DX: E87.70 Fluid overload, unspecified (principal); R10.9 Unspecified abdominal pain; I10 Essential (primary) hypertension; I25.2 Old myocardial infarction; F17.210 Nicotine dependence, cigarettes, uncomplicated; Z79.899 Other long term (current) drug therapy
CPT/HCPCS: 36415; 74022; 80053; 82550; 83690; 85025; 85610; 85730; 86850; 86900; 86901

== ENCOUNTER 2017-08-09 14:36 | Outpatient (CLI) | payer MEDICARE | END 2017-08-09 14:37 | disposition home or self-care (01) | LOC: BICULT 14:36 | PROVIDERS: ATTEND Internal Medicine Hematology & Oncology | DX: C88.4 Extranodal marginal zone B-cell lymphoma of mucosa-associated lymphoid tissue [MALT-lymphoma] (principal); R18.8 Other ascites; R16.1 Splenomegaly, not elsewhere classified | CPT/HCPCS: 76705 ==

== ENCOUNTER 2017-08-10 18:24 | Inpatient (IN) | payer MEDICARE ==
[2017-08-10] MEDS ORDERED: Octreotide Acetate 50 MCG/ML AMP ONE ×3 (18:52→19:22)
[2017-08-10] MEDS ORDERED: Metoclopramide HCl 10 MG/2 ML VIAL ONE (18:58)
[2017-08-10] MEDS ORDERED: Octreotide Acetate 100 MCG/ML VIAL SLOW IVP SCH (19:00)
[2017-08-10] MEDS ORDERED: Octreotide Acetate 1,250 MCG in Sodium Chloride 0.9% 250 ML 250 ML IVPB SCH (19:00)
[2017-08-10 19:21] LABS: Hemoglobin 10.2 g/dL (14.0-18.0); Mean Corpuscular HGB CONC 34.6 g/dL (32.0-36.0); Mean Platelet Volume 8.4 fL (7.4-10.4); Platelet Count 27 thou/uL (130-400); Red Blood Cell (RBC) Count 2.85 mill/uL (4.70-6.10); White Blood Cell (WBC) Count 8.1 thou/uL (4.8-10.8)
[2017-08-10] MEDS ORDERED: Ondansetron HCl/PF 4 MG/2 ML Vial IVP PRN (19:41)
[2017-08-10 19:43] LABS: Anisocytosis SLIGHT = 6-15 cells (100X) (0-5/hpf); Band 3 % (5-11); Eosinophils 1 % (0-10); Lymphocytes 40 % (21-51); MDiff Complete? YES; Monocytes 2 % (0-10); Neutrophil 54 % (42-75); PLT Morphology Comment Appears Decreased
[2017-08-10] MEDS ORDERED: Fentanyl 100 MCG/2 ML VIAL ONE (19:47)
[2017-08-10] MEDS ORDERED: Succinylcholine Chloride 20 MG/ML 10 ml SYRINGE FS ONE ×2 (19:48→20:03)
[2017-08-10] MEDS ORDERED: EPINEPHrine 1 MG/10 ML Abboject SYRINGE ONE ×2 (19:49→22:23)
[2017-08-10] MEDS ORDERED: Pantoprazole 80 MG in Sodium Chloride 0.9% 100 ML IVP SCH (20:00)
[2017-08-10] MEDS ORDERED: Phenylephrine HCL 10 MG/ML VIAL ONE (20:01)
[2017-08-10] MEDS ORDERED: Norepinephrine 8 MG/0.9% NS 250 ML IVPB PRN (20:20)
[2017-08-10] MEDS ORDERED: Ethanolamine Oleate 5% 2 ml Ampule ONE (20:30)
[2017-08-10] MEDS ORDERED: Ventilator Sedation Protocol 1 EACH FS ONE (20:34)
[2017-08-10] MEDS ORDERED: Fentanyl BOLUS 250 ML IVPB PRN (20:39)
[2017-08-10] MEDS ORDERED: Propofol BOLUS 1,000 MG/100 ML VIAL IV PRN (20:39)
[2017-08-10] MEDS ORDERED: DISCONTINUE PREVIOUS NARCOTIC PAIN MEDICATIONS AND BENZODIAZEPINES FS SCH (20:39)
[2017-08-10] MEDS ORDERED: Propofol 1,000 MG/100 ML VIAL IV PRN (20:39)
[2017-08-10] MEDS ORDERED: Lorazepam 2 MG/ML VIAL SLOW IVP PRN (20:39)
[2017-08-10] MEDS ORDERED: fentaNYL Citrate/PF 2,000 MCG in Sodium Chloride 0.9% 60 ML IV SCH (20:39)
[2017-08-10] MEDS ORDERED: Sodium Chloride 0.9% 10 ML ONE (20:52)
[2017-08-10 21:00] LABS: Hemoglobin 8.4 g/dL (14.0-18.0); Mean Corpuscular HGB CONC 34.9 g/dL (32.0-36.0); Mean Corpuscular Hemoglobin 36.5 pg (27.0-31.0); Mean Platelet Volume 4.8 fL (7.4-10.4); Platelet Count 18 thou/uL (130-400); White Blood Cell (WBC) Count 17.2 thou/uL (4.8-10.8)
[2017-08-10 21:14] LABS: Prothrombin Time Greater than 150.0 SEC (12.0-14.7)
[2017-08-10 21:26] LABS: Band 4 % (5-11); Eosinophils 3 % (0-10); Lymphocytes 39 % (21-51); MDiff Complete? YES; Metamyelocyte 2 % (0-0); Monocytes 25 % (0-10); Myelocyte 4 % (0-0); Neutrophil 20 % (42-75); Nucleated RBC 4 % (0); PLT Morphology Comment Appears Decreased; Polychromasia SLIGHT = 2-3 cells (100X) (0-2/hpf); Reactive Lymphocytes 3 % (0-10)
[2017-08-10 21:42] LABS: Hemoglobin 5.7 g/dL (14.0-18.0); Mean Corpuscular HGB CONC 34.1 g/dL (32.0-36.0); Mean Corpuscular Hemoglobin 33.9 pg (27.0-31.0); Mean Corpuscular Volume 99.3 fL (78.0-98.0); Mean Platelet Volume 7.8 fL (7.4-10.4); Platelet Count 41 thou/uL (130-400); RBC Distribution Width 16.1 % (11.5-14.5); Red Blood Cell (RBC) Count 1.68 mill/uL (4.70-6.10); White Blood Cell (WBC) Count 16.6 thou/uL (4.8-10.8)
[2017-08-10 21:50] LABS: Band 2 % (5-11); Eosinophils 2 % (0-10); Lymphocytes 39 % (21-51); MDiff Complete? YES; Metamyelocyte 1 % (0-0); Monocytes 15 % (0-10); Myelocyte 1 % (0-0); Neutrophil 38 % (42-75); Nucleated RBC 6 % (0); PLT Morphology Comment Appears Decreased; Reactive Lymphocytes 2 % (0-10)
[2017-08-10] MEDS ORDERED: cefTRIAXone\\ROCEPHIN 1 GM in Sodium Chloride 0.9% 100 ML IVPB SCH (22:00)
[2017-08-10 22:16] VITALS: TEMP 96.3
[2017-08-10] MEDS ORDERED: Sodium Bicarb 50 MEQ/50 ML Abboject 8.4% SYRINGE ONE (22:23)
[2017-08-10] MEDS ORDERED: Dextrose 50% Abboject 50 ML SYRINGE ONE (22:23)
[2017-08-10] MEDS ORDERED: Calcium Chloride 1 GM/10 ML Abboject SYRINGE ONE (22:23)
[2017-08-10] MEDS ORDERED: Calcium Gluconate 4.6 MEQ in Sodium Chloride 0.9% 100 ML IVPB SCH (22:24)
[2017-08-10 22:45] VITALS: BP 91/35
--- NOTE | 2017-08-10 22:45 | RAD ---
RADIOGRAPH CHEST 1 VIEW: Date: 08/10/17 Time: 9:06 p.m. HISTORY: 62-year-old male in respiratory failure. COMPARISON: 08/02/17. FINDINGS: This is a supine image which would be insensitive for pneumothorax detection. An endotracheal tube crowley s been placed, with distal tip overlying the mid thoracic trachea. NG tube loops over the left upper quadrant, with distal portion traveling to the right side of the abdomen, and side port overlying the expected location of the mid or distal corpus of the stomach. New finding of almost complete silhoue tting of the left hemidiaphragm by left pleural effusion, left lower lobe atelectasis or pneumonia, or combination of these. The lungs are now hypoinflated. Diffusely prominent interstitial markings. S ternotomy wires again noted. IMPRESSION: 1. Status post intubation with placement of endotracheal tube and nasogastric tube. 2. Left pleural effusion versus left lower lobe atelectasis versus left lower lobe infiltrate. ODILON [] POS: [facility]
--- NOTE | 2017-08-11 00:48 | HP ---
PRIMARY CARE PHYSICIAN: Ap De Luna M.D. CODE STATUS: FULL CODE. TIME OF EVALUATION: 7:15. CHIEF COMPLAINT: Vomiting of blood. HISTORY OF PRESENT ILLNESS: Information has been gathered from medical staff, patient has been intubated due to emergency due to upper gastrointestinal bleeding that is active. This is a 62 years old male patient with past medical history of hepatitis C, coronary artery disease, hypertension, patient came to the hospital after having active upper gastrointestinal bleeding, multiple times today, in the ER, he was actively throwing up blood , getting no control, initially he was stable , blood pressure in the 150s, after that blood pressure dropped to the 80, likely due to variceal bleeding, the patient has been stabilized, intubated, going to EGD for procedure with Dr. Jay. Symptoms are severe, no clear triggers, no alleviating factors. The patient is at high risk due to active bleeding. We will be going to ICU after procedure. REVIEW OF SYSTEMS: Unable to obtain, patient has been intubated and sedated. PAST MEDICAL HISTORY: The patient has a history of hepatitis C, liver cirrhosis , coronary artery disease. PAST SURGICAL HISTORY: History of CABG, cholecystectomy. PSYCHIATRIC HISTORY: No psychiatric history. SOCIAL HISTORY: The patient is a former drug user, abuse methamphetamines, tobacco user, quit one year ago. Lives at home with family. FAMILY HISTORY: Unable to obtain. ALLERGIES: Known allergies to BENADRYL. MEDICATIONS: Please see medication reconciliation for details. PHYSICAL EXAMINATION: VITAL SIGNS: On presentation, blood pressure 133/64 with heart rate of 76, respirations 20, oxygen saturation 90, blood pressure drops to high 70s and 80s , needing volume replacement. GENERAL APPEARANCE: The patient is lethargic, being intubated. HEENT: Eyes: Normal conjunctivae, dry oral mucosa. There is blood in the mouth. RESPIRATORY: Bilateral air entry. No rales, no wheezes. Symmetric expansion. CARDIOVASCULAR: Blood pressure remained normal and then dropped to the 70s, normal rhythm, no murmurs, no gallop, no edema. ABDOMEN: Distended. Normal bowel sounds. MUSCULOSKELETAL: Baseline range of motion and strength. SKIN: Warm and intact. pallor, no rash, no redness. NEUROLOGIC: The patient is lethargic, unable to fully explore. LABORATORY DATA: Reviewed. The patient has white count of 17. Hemoglobin 8.4 , the last hemoglobin was 10, and the previous admission was 12. Hematocrit 24 , platelet count 18. Coagulation: PT greater than 150. PTT 45. INR undetermined. Chemistry: Sodium 137, potassium 4.3, chloride 99, carbon dioxide 19, anion gap 22, BUN 24, creatinine 1.0, GFR 74, glucose 80, calcium 9 , total bilirubin 5.5, AST 58. The rest are normal. LDH 283, albumin 2.5. ASSESSMENT AND PLAN: 1. Acute upper gastrointestinal bleeding, actively bleeding, receiving blood transfusions, FFPs, platelets, patient is on liver failure, going for EGD stat, we will placing ICU after this, due to hypovolemic shock, we will restore volume , as fast as possible, will start the patient in pressors if needed. 2. Acute hypovolemic shock, receiving volume, will be in pressors if needed. He will be placing in ICU, ICU consult for evaluation and assistance with this case. case discussed with Dr Hobbs, recommendations followed. 4. Leukocytosis, unclear etiology, could be secondary to acute physical distress, patient at risk for spontaneous bacterial peritonitis. We will place the patient on Rocephin 1 gram daily. 5. Acute blood loss anemia, last hemoglobin 8.4, dropped further to 5 range even after transfusion. Treatment as above. 6. Pancytopenia. The patient has anemia with platelet counts of 18, receiving platelets, this is likely secondary to liver failure due to liver cirrhosis. 7. Liver failure. The patient has very high LFTs, also has coagulopathy, we will try to correct with FFPs and platelets, prognosis is very poor given these circumstances with active massive gastrointestinal bleeding. 8. Decompensated liver cirrhosis, leading to liver failure. Treatment as above. Dr. Jay is following the patient. 9. Deep venous thrombosis prophylaxis. Continue sequential compression devices. The patient auto-anticoagulated. 10- acute encephalopathy due to acute blood loss anemia, pt intubated due to acute respiratory failure and also due to inability to protect airways. acute respiratory failure- due to acute severe blood loss anemia- intubated, Dr Hobbs consulted. ADD : Pt was received to icu after procedure he continued to bleed after initial band ligation was done by Dr. Jay, likely due to liver failure and lack of coagulation mechanisms, family meeting was done by myself, updated were given, decision was to continue medical care and keep pt full code, later on pt deteriorated, coded adn we were unable to bring him back after very aggressive treatments were given. Family was notified, details given, consultants helping with our pt were given updates. pt and pronounced . (please see code sheet and records for details) CESILIA
--- NOTE | 2017-08-11 04:20 | OP ---
PREOPERATIVE DIAGNOSES: Esophageal variceal bleeding, portal hypertension, cirrhosis, thrombocytopen ia, ascites, hepatitis C status post treatment, no IV access, interosseous IV in place. POSTOPERATIVE DIAGNOSES: Esophageal variceal bleeding, portal hypertension, cirrhosis, thrombocytope nini, ascites, hepatitis C status post treatment, no IV access, interosseous IV in place. PROCEDURE: Left subclavian vein large bore triple lumen catheter. SURGEON: Gerardo Liu M.D. ANESTHESIA: General. PROCEDURE: At the patient's bedside in the endoscopy suite, I was called to place an emergent centra l line as IV access could not be established. Left periclavicular area and neck were prepared with C hloraPrep, draped in routine fashion. Infraclavicular approach made and trocar catheter cannulated t he subclavian vein. J wire threaded. Trocar catheter removed. Skin incised and enlarged sharply. Smaller medium sized dilators placed over the J wire into the subclavian vein and removed. Distal po rt of triple lumen large bore catheter placed with J-wire into the subclavian vein. Catheter secured with 2 interrupted sutures of 3-0 silk and sterile dressings applied. Biopatch applied. Each port aspirated blood and flushed with saline solution and then connected to IV fluid solution and blood pr oducts. The patient tolerated the procedure well.
--- NOTE | 2017-08-11 11:22 | CON ---
DATE OF CONSULTATION: 08/10/2017 REFERRING PHYSICIAN: Dr. Forrester, ER doctor. REASON FOR CONSULTATION: Acute upper gastrointestinal bleeding. HISTORY OF PRESENT ILLNESS: Leander Argueta is a 62-year-old male who has history of liver cirrhosis and has been seeing Dr. Abdiel Solis for several years. The patient was hospitalized here with abdominal distention and a history of suspected acute ascites. However, abdominal CAT scan and sonogram shows no ascites, but he was found to have enlarged spleen. Subsequently, he was seen by Dr. Debora Jiménez, Hematology Service. Bone marrow aspiration was found to have B-cell lymphoma. This was positive about a week ago. The patient went to [place] ER because of vomiting blood. He was transferred here to [facility] in [place]. While in the ER, he had another set of massive upper gastrointestinal bleeding with vomiting in the ED of about 900 mL of fresh blood. I did see him briefly before he was intubated. He tells me that he has had no GI bleeding in the past. The patient's admitting hemoglobin is slightly low, but did drop down from 12.2, 10.2 and 29.6. Subsequently, another CBC which dropped to 9 hemoglobin. The patient was on IV octreotide and IV Protonix today. He was also intubated. The patient had a peripheral line and he is getting IV octreotide. The patient was already intubated and was sedated. Most of the history was obtained by going over the consultation by Dr. Solis, dated 08/08/2017. Apparently, he was hospitalized on 07/30/2017 because of abdominal distention, abdominal bloating. Before that he has had a therapeutic paracentesis with drainage of clear fluid . During the last admission, his abdominal CAT scan and sonogram shows no ascites, but does have splenomegaly. He was seen by Dr. Jiménez for consultation and the bone marrow aspiration was found to have B-cell lymphoma. No other relevant history. PAST MEDICAL HISTORY: 1. History hepatitis C, treated, resolved. 2. Liver cirrhosis due to combination of alcohol abuse and hepatitis C regarding anymore. 3. Coronary artery disease. 4. Past history of hypertension. SURGERIES: 1. Coronary artery bypass graft. 2. Cholecystectomy. SOCIAL HISTORY: The patient has h/o alcohol abuse in the past. Does smoke for nearly 30 years. No history of drug abuse. FAMILY HISTORY AND REVIEW OF SYSTEMS: Unobtainable as he is sedated. PHYSICAL EXAMINATION: GENERAL: Revealed a fragile looking male, who appears cachectic, emaciated. VITAL SIGNS: His pulse rate was on 80, blood pressure 84/56. HEENT: Conjunctivae clear. NECK: Supple. CARDIOVASCULAR SYSTEM: First and second heart sounds are normal. LUNGS: Clear to auscultation. ABDOMEN: Distended and firm. No definite organomegaly appreciated. EXTREMITIES: Reveal no edema. LABORATORY DATA: At 6:58 p.m. today, WBC 8100, hemoglobin 10.2, hematocrit 29.6 , MCV 104, platelet count 22,000. His PT and INR was markedly prolonged. His chemistry panel: Sodium 136, potassium 4.3, chloride 99, bicarbonate is 19, BUN 72, creatinine is 1.02, glucose is 80, calcium 9.1, bilirubin 5.5, AST 58, ALT 17, alkaline phosphatase 113, albumin 2.5. CLINICAL IMPRESSION: A 62-year-old male with a massive upper gastrointestinal bleeding, with vomiting of 1200 mL of blood in the ER. The patient has history of liver cirrhosis due to combination of alcoholic abuse and also hepatitis C. Apparently, hepatitis C has been resolved after treatment. The patient drink, does not have alcoholic liver. He was recently hospitalized with abdominal distention and was found to have splenomegaly and workup revealed B-cell lymphoma. 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 The bleeding appears to be quite significant. There is no family available. Plan is to take the patient to endoscopy room for emergent EGD and possibly variceal banding . If the bleeding cannot be controlled, he will need to be transferred to a tertiary care for TIPS procedure to control bleeding. [facility]
--- NOTE | 2017-08-11 11:48 | OP ---
DATE OF SURGERY: 08/10/2017 OPERATIVE PROCEDURE: 1. Esophagogastroduodenoscopy. 2. Esophageal variceal banding x5. PREOPERATIVE DIAGNOSES: Massive upper gastrointestinal bleeding, anemia due to blood loss. POSTOPERATIVE DIAGNOSES: A 4+ varicosities over the distal esophagus with active bleeding and blood clots with large amount of blood in the gastric fundus and proximal stomach, but no definite active bleeding seen. The lower part of the gastric body, gastric antrum, and duodenum show some blood staining of mucosa, but no active bleeding was seen. PROCEDURE IN DETAIL: The patient was intubated and was placed on the ventilator. The patient was given sedation by Anesthesia Department. A Pentax video gastroscope under direct vision was passed into the oropharynx, past the upper esophageal sphincter into the stomach. There was a large amount of blood and blood clots in the stomach. Water was used to irrigate and washout and suctioned out. The patient had active bleeding from the esophageal varices . The GE junction, no pathology seen. The patient had large amount of blood in the proximal stomach and fundus. This was suctioned. The stomach could not completely empty. However, I do not see fresh bleeding in the stomach, the gastric body, gastric antrum, duodenum, no pathology seen. The scope was withdrawn. The variceal band ligator applied to tip of the scope and the scope was advanced to the duodenum and carefully withdrawn. Then 5 variceal banding applied. At the end of the procedure, there is some mild oozing of blood noted , but I could not see any active bleeding per se. The scope removed. NG tube was placed in the stomach to decompress the stomach and the stomach was very tight and firm at the end of the procedure. RECOMMENDATIONS: 1. IV octreotide. 2. NG suction. 3. Fresh frozen plasma and platelet transfusion if necessary. 4. Serial H&H. 5. Hopefully, the bleeding has stopped with the banding and octreotide. The bleeding does not stop then have to consider a TIPS procedure. [facility]
== END 2017-08-11 02:30 | disposition expired | DRG 441 ==
LOC: ERS 18:24 → SDC/OP 20:22 → CCU 21:41
PROVIDERS: ADMIT Hospitalist; ATTEND Hospitalist
PROC: 05H633Z Insertion of Infusion Device into Left Subclavian Vein, Percutaneous Approach (ICD-10-PCS; principal; 2017-08-10)
PROC: 06L38CZ Occlusion of Esophageal Vein with Extraluminal Device, Via Natural or Artificial Opening Endoscopic (ICD-10-PCS; 2017-08-10)
PROC: 30233K1 Transfusion of Nonautologous Frozen Plasma into Peripheral Vein, Percutaneous Approach (ICD-10-PCS; 2017-08-10)
PROC: 30233R1 Transfusion of Nonautologous Platelets into Peripheral Vein, Percutaneous Approach (ICD-10-PCS; 2017-08-10)
PROC: 0BH17EZ Insertion of Endotracheal Airway into Trachea, Via Natural or Artificial Opening (ICD-10-PCS; 2017-08-10)
PROC: 5A1935Z Respiratory Ventilation, Less than 24 Consecutive Hours (ICD-10-PCS; 2017-08-10)
DX: K76.6 Portal hypertension (principal); I85.11 Secondary esophageal varices with bleeding; J96.00 Acute respiratory failure, unspecified whether with hypoxia or hypercapnia; G93.49 Other encephalopathy; R18.8 Other ascites; D62 Acute posthemorrhagic anemia; D61.818 Other pancytopenia; C85.10 Unspecified B-cell lymphoma, unspecified site; I46.9 Cardiac arrest, cause unspecified; R00.1 Bradycardia, unspecified; D69.6 Thrombocytopenia, unspecified; B19.20 Unspecified viral hepatitis C without hepatic coma; K74.60 Unspecified cirrhosis of liver; I25.10 Atherosclerotic heart disease of native coronary artery without angina pectoris; I10 Essential (primary) hypertension; Z95.1 Presence of aortocoronary bypass graft; R57.1 Hypovolemic shock; K72.90 Hepatic failure, unspecified without coma; Z91.14 Patient's other noncompliance with medication regimen
CPT/HCPCS: 31500; 36415; 36416; 36430; 36556; 71045; 76705; 80053; 82248; 83615; 84100; 84165; 84550; 86704; 86705; 86706; 86707; 86850; 86900; 86901; 87340; 87350; 87521; 96365; 96375; 96376; A4216; C1751; C9113; J0171; J1430; J2060; J2270; J2354; J2370; J2765; J3010; J7050; P9016; P9035; P9059